=== PATIENT | male | born 1940 | race Two or more races ===

== ENCOUNTER 2017-03-06 10:58 | Inpatient (IN) | payer MEDICARE, OTHER ==
[~2017-03-06] VITALS: Ht 160 cm; Wt 59.0 kg
[2017-03-06] MEDS ORDERED: ONDANSETRON HCL 4MG/2ML VIAL IV STA (11:21)
[2017-03-06] MEDS ORDERED: SODIUM CHLORIDE 0.9% 500 ML IV ONE (11:21)
[2017-03-06] MEDS ORDERED: FAMOTIDINE 20MG/2ML VIAL IV ONE (11:30)
[2017-03-06 11:42] LABS: CLARITY URINE CLEAR (CLEAR); COLOR URINE YELLOW (YELLOW); GLUCOSE URINE NEGATIVE (NEGATIVE); KETONES URINE TRACE (NEGATIVE); LEUKOCYTE ESTERASE URINE NEGATIVE (NEGATIVE); NITRITE URINE NEGATIVE (NEGATIVE); OCCULT BLOOD URINE NEGATIVE (NEGATIVE); PH URINE 6.5 (4.5-8.0); PROTEIN URINE NEGATIVE (NEGATIVE); SPECIFIC GRAVITY URINE 1.026 (1.005-1.030); UROBILINOGEN URINE 0.2 E.U./dL (0.2-1.0)
[2017-03-06 11:53] LABS: BASOPHILS % 0.6 % (0.0-2.0); EOSINOPHILS % 1.9 % (0.0-5.0); HEMATOCRIT. 39.6 % (42.0-52.0); HEMOGLOBIN. 13.9 g/dL (14.0-18.0); LYMPHOCYTES % 32.2 % (20.0-50.0); MEAN CORPUSCULAR HEMOGLOBIN 30.8 pg (28.0-32.0); MEAN CORPUSCULAR VOLUME 87.9 fL (80.0-94.0); MEAN PLATELET VOLUME 6.8 fl (7.4-10.4); MONOCYTES % 12.8 % (2.0-8.0); NEUTROPHILS % 52.5 % (40.0-76.0); PLATELET 257 x1000/uL (130-400); RED CELL DISTRIBUTION WIDTH 14.5 % (11.6-14.6)
[2017-03-06 12:03] LABS: PARTIAL THROMBOPLASTIN TIME 23.1 sec (23.4-31.0); PROTHROMBIN TIME 10.4 sec (9.4-11.6)
[2017-03-06 12:06] LABS: CARBON DIOXIDE 29 mEq/L (21-32); CHLORIDE 101 mEq/L (98-107)
[2017-03-06 14:30] VITALS: BP 160/76
[2017-03-06] MEDS ORDERED: TRAM50TA3 PO (15:18)
[2017-03-06] MEDS ORDERED: CELE50CA PO (15:18)
[2017-03-06] MEDS ORDERED: GABA-290 PO (15:20)
[2017-03-06] MEDS ORDERED: TAMS-11 PO (15:20)
[2017-03-06] MEDS ORDERED: ZOLP10TA2 PO (15:20)
[2017-03-06] MEDS ORDERED: ALFU10TA9 PO (15:20)
[2017-03-06] MEDS ORDERED: MORPHINE SULFATE 4 MG/ML CPJ (NOT FOR IM USE) IV PRN (15:30)
[2017-03-06] MEDS ORDERED: ONDANSETRON HCL 4MG/2ML VIAL IV PRN (15:30)
[2017-03-06 16:00] VITALS: BP 109/66
[2017-03-06] MEDS ORDERED: NON FORMULARY PATIENT HOME MED EA OP SCH (17:00)
[2017-03-06] MEDS ORDERED: [UNRECOGNIZED DRUG - OTHER] BOTHEYE (17:01)
[2017-03-06] MEDS ORDERED: DICLOFENAC BOTHEYE (17:01)
[2017-03-06] MEDS: GABAPENTIN 400MG CAPSULE PO SCH (17:34)
[2017-03-06] MEDS: AMLODIPINE 10MG TABLET PO SCH (17:34)
[2017-03-06] MEDS ORDERED: POLYVINYL ALCOHOL OPHTH DROPS 15ML BOTHEYE PRN (18:00)
[2017-03-06 20:00] VITALS: BP 152/75
[2017-03-06] MEDS ORDERED: DICLOFENAC 0.1% OP SCH (20:00)
[2017-03-06] MEDS: TOBRAMYCIN/DEXAMETHASONE OPTH DROPS 2.5ML BOTHEYE SCH (20:06)
[2017-03-06] MEDS ORDERED: HYDROCODONE/ACETAMINOPHEN 5/325MG TABLET PO PRN (20:45)
[2017-03-06] MEDS ORDERED: ZOLPIDEM TARTRATE 5MG TABLET PO PRN (21:00)
[2017-03-06] MEDS ORDERED: ZOLPIDEM TARTRATE 5MG TABLET PO SCH (21:00)
[2017-03-06] MEDS ORDERED: TAMSULOSIN HCL 0.4MG SR CAPSULE PO SCH (21:00)
[2017-03-07] VITALS: BP 117/66
[2017-03-07 04:00] VITALS: BP 117/71
[2017-03-07] MEDS ORDERED: OMEPRAZOLE 20MG CAPSULE EXTENDED RELEASE PO SCH (07:10)
[2017-03-07 08:00] VITALS: BP 115/71
[2017-03-07] MEDS: TOBRAMYCIN/DEXAMETHASONE OPTH DROPS 2.5ML BOTHEYE SCH (08:00)
[2017-03-07] MEDS: AMLODIPINE 10MG TABLET PO SCH (08:00)
[2017-03-07] MEDS: GABAPENTIN 400MG CAPSULE PO SCH (08:00)
[2017-03-07] MEDS ORDERED: DICLOFENAC 0.1% OP SCH (09:00)
[2017-03-07 12:00] VITALS: BP 115/72
[2017-03-07 14:39] VITALS: BP 125/72
[2017-03-07 16:00] VITALS: BP 110/72
== END 2017-03-07 16:25 | disposition home or self-care (01) | DRG 392 ==
LOC: ER 12:00 → 8WST 12:39 → EDBEDREQTM 12:43 → EDBEDREQ 12:43 → ENRESERV 13:07
PROVIDERS: ADMIT Internal Medicine; ATTEND Internal Medicine
DX: K21.9 Gastro-esophageal reflux disease without esophagitis (principal); E78.00 Pure hypercholesterolemia, unspecified; E78.5 Hyperlipidemia, unspecified; I10 Essential (primary) hypertension; M19.90 Unspecified osteoarthritis, unspecified site; N40.0 Benign prostatic hyperplasia without lower urinary tract symptoms; Z90.49 Acquired absence of other specified parts of digestive tract; Z79.899 Other long term (current) drug therapy
CPT/HCPCS: 36415; 74176; 80053; 80061; 81003; 83690; 85025; 85610; 85730; 87015; 87045; 87086; 87427; 87449; 87493; 89055; 96361; 96374; 96375; 99285; J2270; J2405; J3490; J7030; J7040